=== PATIENT | female | born 1965 | race Caucasian/White ===

== ENCOUNTER 2017-04-15 20:24 | Emergency (ER) | payer BC ==
[2017-04-15] MEDS ORDERED: Albuterol/Ipratropium NEB.SOL* Albuterol 2.5 MG/Ipratropium 0.5 MG 3 ML INH ONE (21:01)
[2017-04-15] MEDS ORDERED: Ibuprofen TAB* 800 MG PO ONE (21:01)
--- NOTE | 2017-04-15 21:16 | ED ---
HPI Chest Pain - HPI Summary HPI Summary: Pt here w/ fall on Wednesday night - was intoxicated and fell, hitting Lt side of ribs/chest. No pain then and went to bed but was sore Wednesday and today. Actually felt like she was improving with ice and rest until she coughed after using her albuterol, and felt/heard a pop on Lt side w/ abrupt pain - made her sweat and she almost vomited from pain so decided to come here for assessment. She denies hitting her head when she fell and no head or neck pain, visual change, nausea, vomiting, numbness, tingling, weakness. Was using inhaler as asthma has been acting up lately. Denies fever, chills. Cough is scantily productive. No SOB but Lt side/anterior rib pain is worse w/ deep breath. - History of Current Complaint Chief Complaint: EDChestWallPain Time Seen by Provider: 04/15/17 20:50 Hx Obtained From: Patient, Family/Supervisor [employer] - male partner Pain Intensity: 3 - Allergy/Home Medications Allergies/Adverse Reactions: Allergies Allergy/AdvReac Type Severity Reaction Status Date / Time Morphine Allergy Intermediate Itching Verified 03/06/17 10:11 PMH/Surg Hx/FS Hx/Imm Hx Previously Healthy: Yes Endocrine/Hematology History: Reports: Hx Thyroid Disease - take levothyroxine Denies: Hx Anticoagulant Therapy, Hx Blood Disorders Cardiovascular History: Denies: Other Cardiovascular Problems/Disorders Respiratory History: Reports: Hx Asthma - albuterol inhaler PRN - Cancer History Hx Chemotherapy: No Hx Radiation Therapy: No - Immunization History Date of Influenza Vaccine: 2013 Immunizations Up to Date: Yes Infectious Disease History: No Infectious Disease History: Denies: Traveled Outside the [place] in Last 30 Days - Social History Lives: With Family Alcohol Use: Weekly Hx Substance Use: No Substance Use Type: Reports: None Hx Tobacco Use: Yes Smoking Status (MU): Current Every Day Smoker Review of Systems Constitutional: Negative Negative: Fever, Chills, Fatigue Eyes: Negative ENT: Negative Positive: Chest Pain - ribs as in HPI Positive: Cough. Negative: Shortness Of Breath Gastrointestinal: Negative Positive: no symptoms reported Musculoskeletal: Other - ribs as in HPI Positive: Bruising - pt and partner thought they noticed bruising along affected areas of torso/ribs Neurological: Negative Psychological: Normal All Other Systems Reviewed And Are Negative: Yes Physical Exam Triage Information Reviewed: Yes Vital Signs On Initial Exam: Initial Vitals Temp Pulse Resp BP Pulse Ox 97.3 F 83 18 129/72 96 04/15/17 20:26 04/15/17 20:26 04/15/17 20:26 04/15/17 20:26 04/15/17 20:26 Vital Signs Reviewed: Yes Appearance: Positive: Well-Appearing, No Pain Distress - at rest but holds her Lt side w/ coughing, Well-Nourished Skin: Positive: Warm, Dry - no erythema, no ecchymosis, no skin breakdown over affected areas Head/Face: Positive: Normal Head/Face Inspection Eyes: Positive: Normal, EOMI, GRACIELA - no photophobia, Conjunctiva Clear. Negative: Conjunctiva Inflammed, Discharge ENT: Positive: Normal ENT inspection, Hearing grossly normal, Pharynx normal - mucosa moist. Negative: Nasal congestion, Nasal drainage Neck: Positive: Supple, Nontender Respiratory/Lung Sounds: Positive: Breath Sounds Present, Rhonchi, Wheezes - diffuse, Other - Lt anterior and side ribs are TTP - no sara crepitus palpated ; no flail chest observed. Negative: Decreased Breath Sounds, Rales, Subcutaneous Emphysema, Stridor, Tracheal Deviation Cardiovascular: Positive: Normal, RRR, S1, S2 Abdomen Description: Positive: Nontender, Soft Bowel Sounds: Positive: Present Musculoskeletal: Positive: Normal, Strength/ROM Intact Neurological: Positive: Normal, Sensory/Motor Intact, Alert, Oriented to Person Place, Time, CN Intact II-III Psychiatric: Positive: Normal - Peter Coma Scale Coma Scale Total: 15 Diagnostics - Vital Signs Vital Signs Temp Pulse Resp BP Pulse Ox 04/15/17 20:26 97.3 F 83 18 129/72 96 - Laboratory Lab Statement: Any lab studies that have been ordered have been reviewed, and results considered in the medical decision making process. Re-Evaluation - Re-Evaluation First Eval Change: Improved - CTA s/p duoneb - pt reports breathing easier but still has rib pain w/ cough despite ibuprofen - she has SOB w/ hives when she's had morphine in the past and has not tried a controlled substance since Chest Pain Course/Dx - Course Course Of Treatment: CXR report - no rib fx, no pneumothorax, no acute cardiopulm findings. Pt appears to have a rib contusion. Supportive care provided and pneumonia prevention with incentive spirometer. Advised on pain control techniques and to monitor for danger s/sx of when to return to ED - otherwise, will f/u w/ PCP. Pt and partner agree w/ plan. NOTE: narcotic pain med not rx'd as pt's allergy to morphine is anaphylaxis. She has not tried a narcotic pain med since and understands my hesitation for writing this tonight. If pain worsens, will f/u w/ PCP to discuss safest choice as they are more familiar w/ her med hx. - Diagnoses Provider Diagnoses: Contusion of rib on left side, Asthma exacerbation Discharge - Discharge Plan Condition: Stable Disposition: HOME Prescriptions: Lidocaine PATCH 5%* [Lidoderm 5% Patch*] 1 patch TRANSDERM DAILY PRN #30 patch PRN Reason: Pain Patient Education Materials: Asthma (ED), Rib Contusion (ED) Referrals: Lobito Paul [Primary Care Provider] - Additional Instructions: You appear to have a rib contusion without fracture. Continue to apply ice, take ibuprofen with food and use topical pain patch. Lidoderm pain patch has been sent to your pharmacy. If you cannot afford this, you may request that your PCP get prior authorization and/or use Salonpas pain patches (over the counter). Continue to cough and take deep breathes to prevent pneumonia. If you develop fever, chills, shortness of breath, difficulty breathing, return to ED
--- NOTE | 2017-04-15 21:35 | RAD ---
INDICATION: Left rib injury COMPARISON: None TECHNIQUE: Multiple views of the ribs were obtained. FINDINGS: Bones: There is no evidence of acute rib fracture. LUNGS: The lungs are clear. There is no pneumothorax. Pleural spaces: There is no evidence of hemothorax. Other: None IMPRESSION: NO ACUTE RIB FRACTURE.
--- NOTE | 2017-04-15 21:35 | RAD ---
INDICATION: Fall. Left rib pain. COMPARISON: March 08, 2013 TECHNIQUE: PA and lateral dual-energy views were obtained. FINDINGS: Bones/Soft Tissues: There are no acute bony findings. Cardiomediastinal: The cardiomediastinal silhouette is normal. Lungs: There are no infiltrates. Pleura: There are no pleural effusions. Other: None IMPRESSION: NO ACTIVE DISEASE.
[2017-04-15 22:20] VITALS: BP 121/62
[2017-04-15] MEDS ORDERED: Lidocaine PATCH 5%* 1 PATCH TRANSDERM SCH (23:00)
== END 2017-04-15 23:03 | disposition home or self-care (01) ==
LOC: ED 20:24
DX: J21.9 Acute bronchiolitis, unspecified (principal)
CPT/HCPCS: 71020; 94640; A9270-GY

== ENCOUNTER 2018-05-06 10:23 | Emergency (ER) | payer BC, MEDICAID ==
[2018-05-06] MEDS ORDERED: Fluorescein Sodium TOPICAL* 1 MG TEST STRIP ONE (11:16)
[2018-05-06] MEDS ORDERED: Tetracaine 0.5% OPTH.SOL 4 ML* 1 DROP BTL ONE (11:16)
--- NOTE | 2018-05-06 11:30 | ED ---
Complex/Multi-Sys Presentation - HPI Summary HPI Summary: Patient is a 52 y/o F presenting to ED with complaints of left eye pain onsetting yesterday afternoon. She states that she was cleaning her household when Sx onset. Patient reports some discharge from eye, pruritis, eryhtema of eye. Photophobia is endorsed as well. She notes that a few weeks ago she had a piece of string in her eye which was removed. Patient claims that present pain feels similar. No Hx of autoimmune disorders, no Hx of Crohn's, rheumatoid arthritis. No cough, no cold Sx reported. On triage, pain is rated 5/10, nothing is noted to aggravate/alleviate Sx. Home medications, allergies, and nurse's note are reviewed. - History Of Current Complaint Chief Complaint: EDEyeProblem Time Seen by Provider: 05/06/18 11:14 Hx Obtained From: Patient Onset/Duration: Lasting Days - onset yesterday afternoon., Still Present Timing: Constant Severity Currently: Moderate - 5/10 Location: Pain At: - left eye Aggravating Factor(s): nothing Alleviating Factor(s): nothing Associated Signs And Symptoms: Positive: Other - POSITIVE - LEFT EYE PAIN; NEGATIVE - COLD SX. Negative: Cough - Allergies/Home Medications Allergies/Adverse Reactions: Allergies Allergy/AdvReac Type Severity Reaction Status Date / Time MS Morphine [Morphine] Allergy Intermediate Itching Verified 03/06/17 10:11 PMH/Surg Hx/FS Hx/Imm Hx Endocrine/Hematology History: Reports: Hx Thyroid Disease - take levothyroxine Denies: Hx Anticoagulant Therapy, Hx Blood Disorders Cardiovascular History: Denies: Other Cardiovascular Problems/Disorders Respiratory History: Reports: Hx Asthma - albuterol inhaler PRN - Cancer History Hx Chemotherapy: No Hx Radiation Therapy: No - Immunization History Date of Influenza Vaccine: 2013 Infectious Disease History: No Infectious Disease History: Denies: Traveled Outside the [place] in Last 30 Days - Family History Known Family History: Negative: Blood Disorder - Social History Alcohol Use: Weekly Hx Substance Use: No Substance Use Type: Reports: None Hx Tobacco Use: Yes Smoking Status (MU): Current Every Day Smoker Review of Systems Positive: Other - POSITIVE - COLD SX Positive: Photophobia, Other - POSITIVE - LEFT EYE PAIN, ERYTHEMA, PRURITIS, DISCHARGE Negative: Cough All Other Systems Reviewed And Are Negative: Yes Physical Exam - Summary Physical Exam Summary: Appearance: Well appearing, no pain distress Skin: warm, dry, reflects adequate perfusion Head/face: normal Eyes: EOMI, GRACIELA; erythema of left eye with conjunctival inflammation and injection, pupil is mid range and reactive, no pain with light reflex, no fluorescein uptake, no foreign body in eye observed ENT: mucous membranes moist Neck: supple, non-tender Respiratory: CTA, breath sounds present Cardiovascular: RRR, pulses symmetrical Abdomen: non-tender, soft Bowel Sounds: present Musculoskeletal: normal, strength/ROM intact Neuro: normal, sensory motor intact, A&Ox3 Triage Information Reviewed: Yes Vital Signs On Initial Exam: Initial Vitals Temp Pulse Resp BP Pulse Ox 97.8 F 58 16 142/80 98 05/06/18 10:35 05/06/18 10:35 05/06/18 10:35 05/06/18 10:35 05/06/18 10:35 Vital Signs Reviewed: Yes Diagnostics - Vital Signs Vital Signs Temp Pulse Resp BP Pulse Ox 05/06/18 10:35 97.8 F 58 16 142/80 98 - Laboratory Lab Statement: Any lab studies that have been ordered have been reviewed, and results considered in the medical decision making process. Re-Evaluation - Re-Evaluation First Eval Re-Evaluation Time: 11:30 Change: Improved Comment: Patient states that pain is completely resolved after topical anesthesia Complex Multi-Symp Course/Dx Course Of Treatment: Nurse's notes reviewed. Vision is normal area no pain with light reflex. Pain gone after topical tetracaine. No fluorescein uptake. No foreign body seen with lid eversion. Treat with topical antibiotics and follow up with ear specialist. - Diagnoses Differential Diagnoses/HQI/PQRI: Other - Foreign body, corneal abrasion, iritis/ uveitis, conjunctivitis Provider Diagnoses: Conjunctivitis Discharge - Sign-Out/Discharge Documenting (check all that apply): Patient Departure - dischaged - Discharge Plan Condition: Improved Disposition: HOME Prescriptions: Polymyx/Trimethoprim OPTH* [Polytrim OPHTH*] 1 drop LEFT EYE Q3H #1 btl Patient Education Materials: Conjunctivitis (ED) Referrals: Lobito Paul [Primary Care Provider] - Additional Instructions: Return to ED for eye pain, blurred vision, worse, new or worsening symptoms. Call today to schedule follow-up appointment with your eye doctor. - Billing Disposition and Condition Condition: IMPROVED Disposition: Home - Attestation Statements Document Initiated by Tejibsharmila: Yes Documenting Scribe: HENRY FLOR Provider For Whom Sachi is Documenting (Include Credential): MARYAM DUNCAN MD Scribe Attestation: IHENRY , scribed for MARYAM DUNCAN MD on 05/06/18 at 1423. Scribe Documentation Reviewed: Yes Provider Attestation: The documentation as recorded by the HENRY gallardo accurately reflects the service I personally performed and the decisions made by me, MARYAM DUNCAN MD Status of Scribe Document: Viewed
[2018-05-06 11:50] VITALS: BP 132/78
== END 2018-05-06 11:49 | disposition home or self-care (01) ==
LOC: ED 10:23
DX: H10.9 Unspecified conjunctivitis (principal); J45.909 Unspecified asthma, uncomplicated; F17.200 Nicotine dependence, unspecified, uncomplicated; E07.9 Disorder of thyroid, unspecified
CPT/HCPCS: 99281; A9270-GY

== ENCOUNTER 2019-03-23 12:11 | Emergency (ER) | payer BC ==
[2019-03-23] MEDS ORDERED: NS 0.9% 1000 ML** 1,000 ML IV ONE ×2 (12:36→14:07)
[2019-03-23] MEDS ORDERED: Ondansetron INJ* 2 MG/ML VIAL IV ONE (12:36)
--- NOTE | 2019-03-23 12:40 | ED ---
Complex/Multi-Sys Presentation - HPI Summary HPI Summary: The pt is a 53 yr old female presenting [facility] c/o vomiting, diarrhea, and abd pain beginning yesterday. She states that yesterday she was feeling better than this morning and that her diarrhea is like water. She has not travelled recently and is not on antibiotics. She ate at home yesterday and did not eat any unusual foods. She rates her current pain severity a 0/10. No aggravating or alleviating factors noted. She also reports jaw pain and headache. She is an occasional smoker and has Hx of Asthma and hypothyroidism. - History Of Current Complaint Chief Complaint: EDNauseaVomitDiarrh Time Seen by Provider: 03/23/19 12:19 Hx Obtained From: Patient Onset/Duration: Sudden Onset, Lasting Days - 2, Still Present Timing: Constant, Days - 2 Severity Currently: None Severity Initially: Mild Aggravating Factor(s): nothing Alleviating Factor(s): nothing Associated Signs And Symptoms: Positive: Headache, Nausea, Vomiting, Diarrhea, Abdominal Pain, Other - pos - jaw pain - Allergies/Home Medications Allergies/Adverse Reactions: Allergies Allergy/AdvReac Type Severity Reaction Status Date / Time morphine Allergy Itching Verified 03/23/19 12:14 PMH/Surg Hx/FS Hx/Imm Hx Endocrine/Hematology History: Reports: Hx Thyroid Disease - take levothyroxine Denies: Hx Anticoagulant Therapy, Hx Blood Disorders Cardiovascular History: Denies: Other Cardiovascular Problems/Disorders Respiratory History: Reports: Hx Asthma - albuterol inhaler PRN - Cancer History Hx Chemotherapy: No Hx Radiation Therapy: No - Surgical History Surgical History: None Surgery Procedure, Year, and Place: none - Immunization History Date of Influenza Vaccine: 2013 Infectious Disease History: No Infectious Disease History: Denies: Traveled Outside the [place] in Last 30 Days - Family History Known Family History: Negative: Blood Disorder - Social History Alcohol Use: Weekly Hx Substance Use: No Substance Use Type: Reports: None Hx Tobacco Use: Yes Smoking Status (MU): Current Every Day Smoker Review of Systems ENT: Other - pos - jaw pain Positive: Abdominal Pain, Vomiting, Diarrhea, Nausea Positive: Headache All Other Systems Reviewed And Are Negative: Yes Physical Exam - Summary Physical Exam Summary: VITAL SIGNS: Reviewed. GENERAL: Patient is a well-developed and nourished female who is lying comfortable in the stretcher. Patient is not in any acute respiratory distress. HEAD AND FACE: No signs of trauma. No ecchymosis, hematomas or skull depressions. No sinus tenderness. EYES: PERRLA, EOMI x 2, No injected conjunctiva, no nystagmus. EARS: Hearing grossly intact. Ear canals and tympanic membranes are within normal limits. MOUTH: Dry oral mucousa. NECK: Supple, trachea is midline, no adenopathy, no JVD, no carotid bruit, no c- spine tenderness, neck with full ROM. CHEST: Symmetric, no tenderness at palpation. LUNGS: Clear to auscultation bilaterally. No wheezing or crackles. CVS: Regular rate and rhythm, S1 and S2 present, no murmurs or gallops appreciated. ABDOMEN: Soft, non-tender. No signs of distention. No rebound, no guarding, and no masses palpated. Increased bowel sounds. EXTREMITIES: FROM in all major joints, no edema, no cyanosis or clubbing. NEURO: Alert and oriented x 3. No acute neurological deficits. Speech is normal and follows commands. SKIN: Dry and warm. Triage Information Reviewed: Yes Vital Signs On Initial Exam: Initial Vitals Temp Pulse Resp BP Pulse Ox 97.6 F 121 14 136/91 95 03/23/19 12:11 03/23/19 12:11 03/23/19 12:11 03/23/19 12:11 03/23/19 12:11 Vital Signs Reviewed: Yes Procedures - Sedation Patient Received Moderate/Deep Sedation with Procedure: No Diagnostics - Vital Signs Vital Signs Temp Pulse Resp BP Pulse Ox 03/23/19 12:11 97.6 F 121 14 136/91 95 - Laboratory Result Diagrams: 03/23/19 12:46 03/23/19 12:46 Lab Statement: Any lab studies that have been ordered have been reviewed, and results considered in the medical decision making process. Complex Multi-Symp Course/Dx Assessment/Plan: The pt is a 53 yr old female presenting to [facility] c/o vomiting, diarrhea, and abd pain beginning yesterday. She states that yesterday she was feeling better than this morning and that her diarrhea is like water. She has not travelled recently and is not on antibiotics. She ate at home yesterday and did not eat any unusual foods. She rates her current pain severity a 0/10. No aggravating or alleviating factors noted. She also reports jaw pain and headache. She is an occasional smoker and has Hx of Asthma and hypothyroidism. Blood test results without any significant abnormality except for WBCs 11.9, glucose 148, but is 1.7, lipase 85. Urinalysis contaminated. ED course the patient was given IV fluids, medication for the hypomagnesemia. Patient was given Zofran for nausea and vomiting. The patient was given with these medications the patients symptoms have improved. The patient was tolerating fluids without any nausea and vomiting. Patient had only 1 episode of diarrhea has resolved. She has no abdominal cramping. I discussed all the findings and test results with the patient. Patient was instructed to return to the emergency room immediately if any of the symptoms return worsens. Plan of care was discussed with the patient and understands and agrees. All questions were answered at patient satisfaction. There were no further complaints or concerns. Lung exam before discharge: CTA B/L. Good air exchange. No wheezing or crackles heard. CVS: S1 and S2 present. No murmurs appreciated. Patient is alert and oriented x 3. Patient is hemodynamically stable. Patient will be discharged home with follow up PCP in the next 2-3 days - Diagnoses Provider Diagnoses: Nausea vomiting and diarrhea Discharge ED - Sign-Out/Discharge Documenting (check all that apply): Patient Departure - discharge - Discharge Plan Condition: Stable Disposition: HOME Prescriptions: Ondansetron TAB* [Zofran 4 MG Tab*] 4 mg PO Q6H PRN #10 tab PRN Reason: Vomiting Patient Education Materials: Acute Nausea and Vomiting (ED), Acute Diarrhea (ED ) Referrals: No Primary Care Phys,NOPCP [Primary Care Provider] - Additional Instructions: Please follow up with your primary care provider within 3 days. Please return to the ED for any new or worsening symptoms. - Billing Disposition and Condition Condition: STABLE Disposition: Home - Attestation Statements Document Initiated by Scribe: Yes Documenting Scribe: Lalo Capps Provider For Whom Sachi is Documenting (Include Credential): Chad Henson MD Scribe Attestation: aLlo Barroso, scribed for Chad Henson MD on 03/26/19 at 0713. Scribe Documentation Reviewed: Yes Provider Attestation: The documentation as recorded by the Lalo gallardo accurately reflects the service I personally performed and the decisions made by me, Chad Henson MD Status of Scribe Document: Viewed
[2019-03-23 12:51] LABS: ABS Eosinophils 0.1 10^3/ul (0-0.6); ABS Lymphocytes 0.6 10^3/ul (1.0-4.8); ABS Monocytes 0.6 10^3/ul (0-0.8); ABS Neutrophils 10.5 10^3/ul (1.5-7.7); Eosinophil % 0.9 %; Hematocrit 47 % (35-47); Hemoglobin 15.7 g/dL (12.0-16.0); Lymphocyte % 5.3 %; Mean Corpuscular HGB Conc 34 g/dL (31-36); Mean Corpuscular Hemoglobin 30 pg (27-31); Mean Corpuscular Volume 88 fL (80-97); Platelet Count 179 10^3/uL (150-450); Red Blood Count 5.28 10^6 /uL (3.70-4.87); Red Cell Distribution Width 14 % (10-15); White Blood Count 11.9 10^3/uL (3.5-10.8)
[2019-03-23 12:53] LABS: Urine Appearance Turbid; Urine Bilirubin Negative (Negative); Urine Blood Negative (Negative); Urine Color Amber; Urine Glucose Negative (Negative); Urine Ketones Trace (Negative); Urine Nitrite Negative (Negative); Urine Protein 1+(30 mg/dL) (Negative); Urine Specific Gravity 1.028 (1.010-1.030); Urine Urobilinogen Negative (Negative)
[2019-03-23 12:55] LABS: Urine Bacteria Absent (Absent); Urine Red Blood Cell 1+(3-5/hpf) (Absent); Urine Squamous Epithelial Cell Present (Absent); Urine White Blood Cell Trace(0-5/hpf) (Absent)
[2019-03-23 13:08] LABS: Albumin 4.3 g/dL (3.2-5.2); Albumin/Globulin Ratio 1.5 (1-3); BUN/Creatinine Ratio 21.3 (8-20); C Reactive Protein 3.56 mg/L (<8.01); Calcium 9.4 mg/dL (8.6-10.3); EGFR African American 91.1 (>60); EGFR Non-African American 75.3 (>60); Globulin 2.9 g/dL (2-4); Magnesium 1.7 mg/dL (1.9-2.7); Total Bilirubin 0.7 mg/dL (0.2-1.0); Total Protein 7.2 g/dL (6.4-8.9)
[2019-03-23] MEDS ORDERED: Magnesium Oxide TAB* 400 MG PO ONE (13:26)
[2019-03-23] MEDS ORDERED: Diphenoxylat/Atrop 2.5-0.025M* 1 TAB PO PRN (15:11)
[2019-03-23 15:41] VITALS: BP 148/93
--- OUTSIDE RECORDS SUMMARY | 2019-03-28 14:28 | XMS REPORT ---
:1965 Author Organization [facility] Address [address] [place] [address] Care Team Providers Name Role Phone Dung Walker Unavailable Unavailable PROBLEMS Type Condition ICD9-CM Code [id number] Code Onset Condition SNOMED Code Dates Status Problem Mild intermittent J45.20 Active 044912656 asthma without complication Problem Menopausal N95.1 Active 22630067 symptoms Problem Hyperplastic K63.5 Active 999371406 colonic polyp, unspecified part of colon Problem Hypothyroidism, E03.9 Active 40192497 unspecified type ALLERGIES No Information ENCOUNTERS Encounter Location Date Diagnosis [facility] [address] Mar, [place] [address] Counts [facility] [address] Mar, [place] [address] [place] [address] [facility] Feb, [place] [address] [facility] [address] Feb, Menopausal symptoms N95.1 [place] [address] ; Screening for breast cancer Z12.31 and Influenza vaccine refused Z28.21 [facility] [address] Feb, [place] [address] [facility] [address] Apr, [place] [address] Counts Include [facility] [address] Mar, [place] [address] [facility] [address] Mar, [place] [address] [facility] [address] Mar, [place] [address] cancer Z12.4 ; Hot flashes R23.2 ; Mild intermittent asthma without complication J45.20 ; Screening for colon cancer Z12.11 ; Screening for breast cancer Z12.31 and Hypothyroidism, unspecified type E03.9 [place] [facility] [address] Jan, [place] [address] [facility] [address] Dec, [place] [address] Counts Include [facility] [address] Mar, [place] [address] Counts [facility] [address] Mar, [place] [address] Counts [facility] [address] Mar, [place] [address] Counts [facility] [address] Feb, [place] [address] [facility] [address] Feb, [place] [address] [facility] [address] Nov, [place] [address] [facility] [address] Nov, [place] [address] Counts Include [facility] [address] August, [place] [address] Counts Include [facility] [address] August, [place] [address] IMMUNIZATIONS No Known Immunizations SOCIAL HISTORY Never Assessed REASON FOR REFERRAL FUNCTIONAL STATUS PLAN OF CARE Activity Details Follow Up 3-6 weeks, also as scheduled Reason:Menopause f/u / other concerns Pending Test MAMMO SCREENING BILATERAL VITAL SIGNS Temperature 98.2 degrees Fahrenheit 2019-03-21 Heart Rate 20 2019-03-21 Weight 134.3 2019-03-21 Height 62.9 in 2019-03-21 BMI 23.86 kg/m2 2019-03-21 Oximetry 98 % 2019-03-21 Blood pressure systolic 105 mm Hg 2019-03-21 Blood pressure diastolic 72 mm Hg 2019-03-21 MEDICATIONS Medication Instructions Dosage Frequency Start End Duration Status Date Date Venlafaxine HCl Orally Once a 1 tablet 24h Feb, day(s) Active 75 mg day with food 2018 Nasal [place] 0.05 Nasally Twice a 2 sprays 12h Active % day in each nostril as needed Levothyroxine Orally Once a 1 tablet 24h Active Sodium 75 MCG day on an empty stomach in the morning Ventolin HFA 108 Inhalation every 2 puffs as 6h Active (90 Base) MCG/ACT 6 hrs needed PROCEDURES Procedure Date Ordered Result Body Site BODY MASS INDEX DOCD Mar 21, 2019 SMOKING + 2ND HAND ASSESSED Mar 21, 2019 Oxygen saturation results documented and reviewed Mar 21, 2019 BLOOD PRESSURE, MEASURED Mar 21, 2019 RESULTS No Results REASON FOR VISIT menopause , PVP:MAMMO,PHQ-2,TOBACCO SCR,BMI &FU,FLU,TETANUS,ZOSTER. , Offer imms per above. MPT,declined the flu shot.CM , please order a MAMMO.CM , will request patient tetanus shot. Insurance Providers [facility] Health Member Patient Patient Patient Patient Patient Subscriber Subscriber Subscriber Group Insurance Plan Plan Plan Plan ID Relationship Address Phone Name Date of ID Name Date of No Type Insurance Insurance Insurance Coverage to Subscriber Address Phone Name Dates Medicaid [address] [phone] Medicaid self Shakira [id number] Wrap [facility] 56 Wrap [facility] [address] Case [phone] Case self Shakira [id number] Management [place] 02 [facility] [address] [facility] Blue [phone] Blue self Shakira [id number] Choice Opt [id number] 89 Choice Opt [place] 1 Medical [place] Medical [address] Excellus [phone] Excellus self Shakira [id number] Essential [id number] 89 Essential [place] 9 Plan 1 2 [place] Plan 1 2 Medical [address] Medical Blue [phone] Blue self Shakira [id number] Choice Opt 9255 Attn 83 Choice Opt [place] -WEA GG457 [place] Claims [id number] [place] [facility]plex [facility]plex [facility] [address] MEDICAL (GENERAL) HISTORY Type Description Date Medical History hypothyroidism Medical History Asthma Surgical History Hernia Right side x2 2004 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
--- OUTSIDE RECORDS SUMMARY | 2019-03-28 14:28 | XMS REPORT ---
:1965 Author Organization [facility] Address [address] [place] [address] Care Team Providers Name Role Phone Dung Walker Unavailable Unavailable PROBLEMS Type Condition ICD9-CM Code SHY87-PE Code Onset Condition SNOMED Code Dates Status Problem Mild intermittent J45.20 Active 496709666 asthma without complication Problem Menopausal N95.1 Active 92206629 symptoms Problem Hyperplastic K63.5 Active 023479976 colonic polyp, unspecified part of colon Problem Hypothyroidism, E03.9 Active 79134135 unspecified type ALLERGIES No Information ENCOUNTERS Encounter Location Date Diagnosis [facility] [address] Mar, [place] [address] [facility] [address] Mar, Menopausal symptoms N95.1 [place] [address] [place] [address] [place] Feb, [place] [address] [place] [address] [place] Feb, [place] [address] [facility] [address] Feb, Menopausal symptoms N95.1 [place] [address] ; Screening for breast cancer Z12.31 and Influenza vaccine refused Z28.21 [facility] [address] Feb, [place] [address] [facility] [address] Apr, [place] [address] [facility] [address] Mar, [place] [address] [facility] [address] Mar, [place] [address] [facility] [address] Mar, [place] [address] cancer Z12.4 ; Hot flashes R23.2 ; Mild intermittent asthma without complication J45.20 ; Screening for colon cancer Z12.11 ; Screening for breast cancer Z12.31 and Hypothyroidism, unspecified type E03.9 [place] [facility] [address] 31 Jan, 2017 [place] [address] [facility] [address] 25 Dec, 2016 [place] [address] [facility] [address] 16 Mar, 2016 [place] [address] [facility] [address] Mar, [place] [address] [facility] [address] Mar, [place] [address] [facility] [address] Feb, [place] [address] [facility] [address] Feb, [place] [address] [facility] [address] Nov, [place] [address] [facility] [address] Nov, [place] [address] [facility] [address] August, [place] [address] [facility] [address] August, [place] [address] IMMUNIZATIONS No Known Immunizations SOCIAL HISTORY Never Assessed REASON FOR REFERRAL FUNCTIONAL STATUS PLAN OF CARE VITAL SIGNS MEDICATIONS Unknown Medications PROCEDURES No Known procedures RESULTS No Results REASON FOR VISIT Acute Triage Insurance Providers [facility] Member Patient Patient Patient Patient Patient Subscriber Subscriber Subscriber Group Insurance Plan Plan Plan Plan ID Relationship Address Phone Name Date of ID Name Date of No Type Insurance Insurance Insurance Coverage to Subscriber Address Phone Name Dates Medicaid [address] [phone] Medicaid self Shakira [id number] Wrap [facility] 56 Wrap [facility] [address] Case [phone] Case self Shakira [id number] Management [place] 02 [facility] [address] [facility] Blue [phone] Blue self Shakira [id number] Choice Opt [id number] 89 Choice Opt [place] 1 Medical Homero [place] Medical [address] Excellus [phone] Excellus self Shakira [id number] Essential [id number] 89 Essential [place] 9 Plan 1 2 [place] Plan 1 2 Medical [address] Medical Blue [phone] Blue self Shakira [id number] Choice Opt 9255 Attn 83 Choice Opt [place] GG457 [place] Claims GG457 [place] [facility] Hplex Quentin [facility] [address] MEDICAL (GENERAL) HISTORY Type Description Date Medical History hypothyroidism Medical History Asthma Surgical History Hernia Right side x2 2004 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
--- OUTSIDE RECORDS SUMMARY | 2019-03-28 14:28 | XMS REPORT ---
:1965 Author Organization [facility] Address [address] [place] [address] Care Team Providers Name Role Phone Dung Walker Unavailable Unavailable PROBLEMS Type Condition ICD9-CM Code JSQ66-HC Code Onset Condition SNOMED Code Dates Status Problem Mild intermittent J45.20 Active 287740521 asthma without complication Problem Menopausal N95.1 Active 01332447 symptoms Problem Hyperplastic K63.5 Active 513480384 colonic polyp, unspecified part of colon Problem Hypothyroidism, E03.9 Active 06102237 unspecified type ALLERGIES No Information ENCOUNTERS Encounter Location Date Diagnosis [facility] [address] Mar, [place] [address] [facility] [address] Mar, Menopausal symptoms N95.1 [place] [address] [place] [address] [place] Feb, [place] [address] [place] [address] [place] Feb, [place] [address] [facility] [address] Feb, Menopausal symptoms N95.1 [place] [address] ; Screening for breast cancer Z12.31 and Influenza vaccine refused Z28.21 [facility] [address] Feb, [place] [address] [facility] [address] Apr, [place] [address] [facility] [address] Mar, [place] [address] [facility] [address] Mar, [place] [address] [facility] [address] Mar, [place] [address] cancer Z12.4 ; Hot flashes R23.2 ; Mild intermittent asthma without complication J45.20 ; Screening for colon cancer Z12.11 ; Screening for breast cancer Z12.31 and Hypothyroidism, unspecified type E03.9 [place] [facility] [address] 31 Jan, 2017 [place] [address] [facility] [address] 25 Dec, 2016 [place] [address] [facility] [address] 16 Mar, 2016 [place] [address] [facility] [address] 14 Mar, 2016 [place] [address] [facility] [address] Mar, [place] [address] [facility] [address] Feb, [place] [address] [facility] [address] Feb, [place] [address] [facility] [address] Nov, [place] [address] [facility] [address] Nov, [place] [address] [facility] [address] August, [place] [address] [facility] [address] August, [place] [address] IMMUNIZATIONS No Known Immunizations SOCIAL HISTORY Never Assessed REASON FOR REFERRAL FUNCTIONAL STATUS PLAN OF CARE VITAL SIGNS MEDICATIONS Medication Instructions Dosage Frequency Start End Duration Status Date Date Venlafaxine HCl Orally Once a 1 tablet 24h Feb, day(s) Unknown 75 mg day with food 2018 Levothyroxine Orally Once a 1 tablet 24h Unknown Sodium 75 MCG day on an empty stomach in the morning Ventolin HFA 108 Inhalation 2 puffs as 6h Unknown (90 Base) MCG/ACT every 6 hrs needed Mometasone Nasally Once a 2 sprays 24h Active Furoate 50 day in each MCG/ACT nostril PROCEDURES No Known procedures RESULTS No Results REASON FOR VISIT call back Insurance Providers [facility] Member Patient Patient Patient Patient Patient Subscriber Subscriber Subscriber Group Insurance Plan Plan Plan Plan ID Relationship Address Phone Name Date of ID Name Date of No Type Insurance Insurance Insurance Coverage to Subscriber Address Phone Name Dates Excellus [phone] Excellus self Shakira [id number] Essential [id number] Essential [place] 9 Plan 1 2 [place] Plan 1 2 Medical [id number] Medical Blue [phone] Blue self Shakira [id number] Choice [place] [id number] 89 Choice [place] 1 [place] [address] Blue [phone] Blue self Shakira [id number] Choice Opt 9255 Attn 83 Choice Opt [place] -WEA GG457 [place] Claims GG457 [place] Hplex Quentin Dept Hplex Quentin [facility] [address] [address] [phone] Medicaid self Shakira [id number] Wrap [facility] 56 Wrap [facility] [address] Case [phone] Case self Shakira [id number] Management [place] 02 Management [facility] [address] [facility] MEDICAL (GENERAL) HISTORY Type Description Date Medical History hypothyroidism Medical History Asthma Surgical History Hernia Right side x2 2004 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
--- OUTSIDE RECORDS SUMMARY | 2019-03-28 14:28 | XMS REPORT | Referral Summary ---
:1965 Author Organization [facility] Address [address] [place] [address] Care Team Providers Name Role Phone Eduardo Rothman Primary Care Physician Encounter Date(s): 02/16/19 - 02/16/19 [facility] [address] [place] [address] [place] Encounter Diagnosis Malignant neoplasm of unspecified site of unspecified female breast (Final) - Discharge Disposition: Home or Self Care Attending Physician: Gracia Don Admitting Physician: Gracia Don Referring Physician: FLAKO JESUS, DoctorQ Functional Status No data available for this section Vital Signs No data available for this section Problem List Condition Effective Dates Status Health Status Informant Acneiform rash(Confirmed) 08/30/15 Active Malignant neoplasm of central part 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 Currently undergoing XRT. TTE 10/2015 - Ef 58% TTE 07/2015 - EF 64% Allergies, Adverse Reactions, Alerts No Known Allergies Medications Advil mg, Oral, See comments, 0 Refill(s), prn Start Date: 12/25/15 Status: Orderedtamoxifen 20 mg oral tablet See Instructions, # 30 tab, 3 Refill(s), TAKE 1 TABLET BY MOUTH EVERY DAY, Pharmacy: [facility] #[id number], TAKE 1 TABLET BY MOUTH EVERY DAY Start Date: 01/19/19 Status: OrderedXanax 0.5 mg oral tablet 0.5 mg, = 1 tab, Oral, BID, X 30 day(s), # 60 tab, 0 Refill(s), as needed for anxiety, prn, Pharmacy: [facility] #[id number], 1 tab Oral BID,x30 day(s), PRN:as needed for anxiety,Instr:prn Start Date: 01/24/19 Stop Date: 02/23/19 Status: Ordered Results No data available for this section Immunizations No data available for this section Procedures Procedure Date Related Diagnosis Body Site Status left, breast cancer Completed port placement1 Completed 33146 Social History Social History Type Response Smoking Status Never smoker; Concerns about tobacco use in household: No entered on: 11/22/18 Assessment and Plan No data available for this section Hospital Discharge Instructions No data available for this section
== END 2019-03-23 15:45 | disposition home or self-care (01) ==
LOC: ED 12:11
DX: R11.2 Nausea with vomiting, unspecified (principal); R19.7 Diarrhea, unspecified; E03.9 Hypothyroidism, unspecified; J45.909 Unspecified asthma, uncomplicated; F17.200 Nicotine dependence, unspecified, uncomplicated; Z79.890 Hormone replacement therapy; Z88.5 Allergy status to narcotic agent
CPT/HCPCS: 36415; 80053; 81003; 81015; 83605; 83630; 83690; 83735; 85025; 86140; 87045; 87046; 87086; 87493; 87899; 96361; 96374; 99282; J2405

== ENCOUNTER 2019-04-07 16:36 | Emergency (ER) | payer BC ==
--- OUTSIDE RECORDS SUMMARY | 2019-04-07 16:57 | XMS REPORT | Referral Summary ---
:1965 Author Organization [facility] Address [address] [place] [address] Care Team Providers Name Role Phone Odilia LIPSCOMB, Eduardo Courtney Primary Care Physician Encounter Date(s): 03/27/19 - 03/27/19 [facility] [address] [place] [address] Encounter Diagnosis Malignant neoplasm of central portion of unspecified female breast (Final) - Secondary malignant neoplasm of bone (Final) - Discharge Disposition: Home or Self Care Attending Physician: Gracia Denson Admitting Physician: Gracia Denson Referring Physician: FLAKO JESUS, DoctorQ Functional Status [...] 0 Refill(s), prn Start Date: 12/25/15 Status: OrderedAromasin 25 mg oral tablet 25 mg, = 1 tab, Oral, Daily, # 30 tab, 0 Refill(s), Pharmacy: [facility] #[id number], 1 tab Oral Daily Start Date: 03/28/19 Status: Orderedergocalciferol 50,000 intl units (1.25 mg) oral capsule 50,000 IntUnit, = 1 cap, Oral, q7day, # 4 cap, 0 Refill(s), Pharmacy: [facility] #[id number], 1cap Oral q7day,x30 day(s) Start Date: 03/28/19 Stop Date: 04/27/19 Status: OrderedLomotil 2.5 mg-0.025 mg oral tablet 2 tab, Oral, QID, X 30 day(s), # 120 tab, 0 Refill(s), for loose stools, Pharmacy: [facility] #[id number], 2 tab Oral QID,x30 day(s),PRN:for loose stools Start Date: 03/28/19 Stop Date: 04/27/19 Status: Orderedmeloxicam 15 mg oral tablet 15 mg, = 1 tab, Oral, Daily, 0 Refill(s) Start Date: 03/07/19 Status: OrderedVerzenio 100 mg oral tablet 100 mg, = 1 tab, Oral, BID, X 30 day(s), # 60 tab, 6 Refill(s), Pharmacy: [facility], 1 tab Oral BID,x30 day(s) Start Date: 03/28/19 Stop Date: 10/24/19 Status: OrderedXanax 1 mg oral tablet 1 mg, Oral, 0 Refill(s), Other Start Date: 03/06/19 Status: Ordered Results No data available for this section Immunizations No data available for this section Procedures Procedure Date Related Diagnosis Body Site Status left, breast cancer Completed port placement1 Completed 46098 Social History Social History Type Response Smoking Status Never smoker; Concerns about tobacco use in household: No entered on: 11/22/18 Assessment and Plan No data available for this section Hospital Discharge Instructions No data available for this section
--- OUTSIDE RECORDS SUMMARY | 2019-04-07 16:57 | XMS REPORT ---
:1965 Author Organization [facility] Address [address] [place] [address] Care Team Providers Name Role Phone Dung Walker Unavailable Unavailable PROBLEMS Type Condition ICD9-CM Code YLF30-XH Code Onset Condition SNOMED Code Dates Status Problem Mild intermittent J45.20 Active 647155206 asthma without complication Problem Menopausal N95.1 Active 05153776 symptoms Problem Hyperplastic K63.5 Active 593832526 colonic polyp, unspecified part of colon Problem Hypothyroidism, E03.9 Active 54313840 unspecified type ALLERGIES No Information ENCOUNTERS Encounter Location Date Diagnosis [place] [address], [place] [address] Mar, [place] [address] [place] [address] Mar, Menopausal symptoms N95.1 [place] [address] and Dysuria R30.[address] Feb, [place] [address] Feb, [place] [address] [facility] [address] Feb, Menopausal symptoms N95.1 [place] [address] ; Screening for breast cancer Z12.31 and Influenza vaccine refused Z28.21 [facility] [address] Feb, [place] [address] [place] [address] Apr, [place] [address] [place] [address], [place] [address] [place] [address] 12 Mar, 2017 [place] [address] [facility] [address] 08 Mar, 2017 Screening [place] [address] cancer Z12.4 ; Hot flashes R23.2 ; Mild intermittent asthma without complication J45.20 ; Screening for colon cancer Z12.11 ; Screening for breast cancer Z12.31 and Hypothyroidism, unspecified type E03.9 [place] [facility] [address] Jan, [place] [address] [facility] [address] Dec, [place] [address] [facility] [address] 16 Mar, 2016 [place] [address] [facility] [address] Mar, [place] [address] [facility] [address] Mar, [place] [address] [facility] [address] Feb, [place] [address] [facility] [address] Feb, [place] [address] [place] [address] Nov, [place] [address] [facility] [address] Nov, [place] [address] [facility] [address] August, [place] [address] [place] [address] August, [place] [address] IMMUNIZATIONS No Known Immunizations SOCIAL HISTORY Never Assessed REASON FOR REFERRAL FUNCTIONAL STATUS PLAN OF CARE VITAL SIGNS MEDICATIONS Unknown Medications PROCEDURES No Known procedures RESULTS No Results REASON FOR VISIT Update [employer] Insurance Providers [facility] Member Patient Patient Patient Patient Patient Subscriber Subscriber Subscriber Group Insurance Plan Plan Plan Plan ID Relationship Address Phone Name Date of ID Name Date of No Type Insurance Insurance Insurance Coverage to Subscriber Address Phone Name Dates Medicaid [address] [phone] Medicaid self Shakira [id number] Wrap [facility] 56 Wrap [facility] [address] Blue [phone] Blue self Shakira [id number] Choice Opt 89 Choice Opt [place] 1 Medical [place] Medical [address] Case [phone] Case self Shakira [id number] Management [place] 02 [facility] [address] [facility] [phone] Excellus self Shakira [id number] Essential [id number] 89 Essential [place] 9 Plan 1 2 [place] Plan 1 2 Medical [id number] Medical Blue [phone] Blue self Shakira [id number] Choice Opt 9255 Attn 83 Choice Opt [place] -WEA GG457 [place] Claims [id number] [place] [facility]plex [facility] Hplex Quentin [facility] [address] MEDICAL (GENERAL) HISTORY Type Description Date Medical History hypothyroidism Medical History Asthma Surgical History Hernia Right side x2 2004 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
--- OUTSIDE RECORDS SUMMARY | 2019-04-07 16:57 | XMS REPORT | Referral Summary ---
:1965 Author Organization [facility] Address [address] [place] [address] Care Team Providers Name Role Phone Odilia LIPSCOMB, Eduardo Courtney Primary Care Physician Encounter Date(s): 03/28/19 - 03/28/19 [facility] [address] [place] [address] [phone] Encounter Diagnosis Malignant neoplasm of unspecified site of unspecified female breast (Final) - Discharge Disposition: Home or Self Care Attending Physician: Luciano Simental MD Admitting Physician: Luciano Simental MD Functional Status No data available for this [...] Daily, # 30 tab, 0 Refill(s), Pharmacy: [facility] #[id number], 1 tab Oral Daily Start Date: 03/28/19 Status: Orderedergocalciferol 50,000 intl units (1.25 mg) oral capsule 50,000 IntUnit, = 1 cap, Oral, q7day, # 4 cap, 0 Refill(s), Pharmacy: [facility] #[id number], 1cap Oral q7day,x30 day(s) Start Date: 03/28/19 Stop Date: 04/27/19 Status: OrderedLomotil 2.5 mg-0.025 mg oral tablet 2 tab, Oral, QID, X 30 day(s), # 120 tab, 0 Refill(s), for loose stools, Pharmacy: [facility] #[id number], 2 tab Oral QID,x30 day(s),PRN:for loose stools Start Date: 03/28/19 Stop Date: 04/27/19 Status: Orderedmeloxicam 15 mg oral tablet 15 mg, = 1 tab, Oral, Daily, 0 Refill(s) Start Date: 03/07/19 Status: Orderedpotassium chloride 20 mEq oral tablet, extended release 20 mEq, = 1 tab, Oral, TID, X 3 day(s), # 9 tab, 0 Refill(s), Pharmacy: [facility] #[id number],1 tab Oral TID,x3 day(s) Start Date: 04/03/19 Stop Date: 04/06/19 Status: OrderedVerzenio 100 mg oral tablet 100 mg, = 1 tab, Oral, BID, X 30 day(s), # 60 tab, 6 Refill(s), [facility], 1 tab Oral BID,x30 day(s) Start Date: 03/28/19 Stop Date: 10/24/19 Status: OrderedXanax 1 mg oral tablet 1 mg, Oral, 0 Refill(s), Other Start Date: 03/06/19 Status: Ordered Results No data available for this section Immunizations No data available for this section Procedures Procedure Date Related Diagnosis Body Site Status left, breast cancer Completed port placement1 Completed 45302 Social History Social History Type Response Smoking Status Never smoker; Concerns about tobacco use in household: No entered on: 11/22/18 Assessment and Plan No data available for this section Hospital Discharge Instructions No data available for this section
--- OUTSIDE RECORDS SUMMARY | 2019-04-07 16:57 | XMS REPORT ---
:1965 Author Organization [facility] Address [address] [place] [address] Care Team Providers Name Role Phone Dung Walker Unavailable Unavailable PROBLEMS Type Condition ICD9-CM Code [id number] Code Onset Condition SNOMED Code Dates Status Problem Mild intermittent J45.20 Active 255572964 asthma without complication Problem Menopausal N95.1 Active 88170731 symptoms Problem Hyperplastic K63.5 Active 232035680 colonic polyp, unspecified part of colon Problem Hypothyroidism, E03.9 Active 45814052 unspecified type ALLERGIES No Information ENCOUNTERS Encounter Location Date Diagnosis [place] [address], [place] [address], [place] [address] [place] [address], Menopausal symptoms N95.1 [place] [address] and Dysuria R30.[address], [place] [address], [place] [address] [facility] [address] Feb, Menopausal symptoms N95.1 [place] [address] ; Screening for breast cancer Z12.31 and Influenza vaccine refused Z28.21 [facility] [address] Feb, [place] [address] [place] [address], [place] [address] [place] [address], [place] [address] [place] [address] Mar, 2017 [place] [address] [facility] [address] 08 Mar, 2017 [place] [address] cancer Z12.4 ; Hot flashes R23.2 ; Mild intermittent asthma without complication J45.20 ; Screening for colon cancer Z12.11 ; Screening for breast cancer Z12.31 and Hypothyroidism, unspecified type E03.9 [place] [facility] [address] Jan, [place] [address] [facility] [address] Dec, [place] [address] [facility] [address], [place] [address] [facility] [address], [place] [address] [place] [address], [place] [address] [facility] [address] Feb, [place] [address] [facility] [address], [place] [address] [facility] [address] Nov, [place] [address] [place] [address] Nov, [place] [address] [facility] [address] August, [place] [address] [place] [address], [place] [address] IMMUNIZATIONS No Known Immunizations SOCIAL HISTORY Never Assessed REASON FOR REFERRAL FUNCTIONAL STATUS PLAN OF CARE Activity Details Follow Up as scheduled Reason: Pending Test -Urine-Dip VITAL SIGNS Temperature 97.4 degrees Fahrenheit 2019-03-28 Heart Rate 20 2019-03-28 Weight 132.6 2019-03-28 Height 62.9 in 2019-03-28 BMI 23.56 kg/m2 2019-03-28 Oximetry 96 % 2019-03-28 Blood pressure systolic 106 mm Hg 2019-03-28 Blood pressure diastolic 70 mm Hg 2019-03-28 MEDICATIONS Medication Instructions Dosage Frequency Start End Duration Status Date Date Levothyroxine Orally Once a 1 tablet 24h Active Sodium 75 MCG day on an empty stomach in the morning Mometasone Nasally Once a 2 sprays 24h Active Furoate 50 day in each MCG/ACT nostril Nitrofurantoin Orally every 12 1 capsule 12h Dec, 8 Dec, 5 day(s) Active Monohyd Macro 100 hrs with food 2018 2019 mg Venlafaxine HCl Orally Once a 1 tablet 24h Feb, day(s) Active 37.5 MG day with food 2018 Ventolin HFA 108 Inhalation 2 puffs as 6h Not-Taki (90 Base) MCG/ACT every 6 hrs needed ng PROCEDURES Procedure Date Ordered Result Body Site SPECIMEN HANDLING Mar 28, 2019 Urinalysis nonauto wo scope Mar 28, 2019 BODY MASS INDEX DOCD Mar 28, 2019 SMOKING + 2ND HAND ASSESSED Mar 28, 2019 Oxygen saturation results documented and reviewed Mar 28, 2019 BLOOD PRESSURE, MEASURED Mar 28, 2019 RESULTS Name Result Date Reference Range -Urine/Lab Specimen Collection 2019-03-28 URINALYSIS, COMPLETE W/REFLEX TO 2019-03-28 CULTURE COLOR YELLOW YELLOW APPEARANCE CLEAR CLEAR SPECIFIC GRAVITY 1.018 1.001-1.035 PH 6.0 5.0-8.0 GLUCOSE NEGATIVE NEGATIVE BILIRUBIN NEGATIVE NEGATIVE KETONES NEGATIVE NEGATIVE OCCULT BLOOD NEGATIVE NEGATIVE PROTEIN NEGATIVE NEGATIVE NITRITE NEGATIVE NEGATIVE LEUKOCYTE ESTERASE NEGATIVE NEGATIVE WBC NONE SEEN < OR = 5 RBC NONE SEEN < OR = 2 SQUAMOUS EPITHELIAL CELLS 0-5 < OR = 5 BACTERIA NONE SEEN NONE SEEN HYALINE CAST NONE SEEN NONE SEEN REFLEXIVE URINE CULTURE NO CULTURE INDICATED REASON FOR VISIT Pap, PVP:COLON,PHQ-2,TOBACCO SCR,BMI&FU,FLU,TETANUS,ZOSTER.CM Offer imms. MPT, PATIENT IS NOT DUE FOR A PAP.CM correct but patient has some concerns with her reproductive tract and is coming for pelvic exam. Please set up tray. MPT, Patient is not due for colon cancer screening she has an up to date colonoscopy report in chart. Please see why this is not tracking correctly. [facility], [facility] Insurance Providers [facility] Health Member Patient Patient Patient Patient Patient Subscriber Subscriber Subscriber Group Insurance Plan Plan Plan Plan ID Relationship Address Phone Name Date of ID Name Date of No Type Insurance Insurance Insurance Coverage to Subscriber Address Phone Name Dates Case [phone] Case self [place]akira [id number] Management [place] [address] [facility] [address] [facility] Excell[employer] [phone] Excell[place] self Shakira [id number] Essential [id number] Essential [place] 9 Plan 1 2 [place] Plan 1 2 Medical [id number] Medical Medicaid [id number] [phone] Medicaid self Shakira [id number] Wrap [facility] 56 Wrap [place] [address] Blue [phone] Blue self Shakira [id number] [place] [id number] Choice Opt [place] 1 Medical [facility] [address] Blue [phone] Blue self Shakira [id number] Choice Opt [address] 83 Choice Opt [place] -WEA GG457 [place] [id number] [place] [facility] [address] MEDICAL (GENERAL) HISTORY Type Description Date Medical History hypothyroidism Medical History Asthma Surgical History Hernia Right side x2 2004 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
--- OUTSIDE RECORDS SUMMARY | 2019-04-07 16:57 | XMS REPORT ---
:1965 Author Organization [facility] Address [address] [place] [address] Care Team Providers Name Role Phone Dung Walker Unavailable Unavailable PROBLEMS Type Condition ICD9-CM Code [id number] Code Onset Condition SNOMED Code Dates Status Problem Mild intermittent J45.20 Active 865560638 asthma without complication Problem Menopausal N95.1 Active 77455981 symptoms Problem Hyperplastic K63.5 Active 245476089 colonic polyp, unspecified part of colon Problem Hypothyroidism, E03.9 Active 67383811 unspecified type ALLERGIES No Information ENCOUNTERS Encounter Location Date Diagnosis [place] [address], [place] [address], [place] [address] [place] [address], Menopausal symptoms N95.1 [place] [address] and Dysuria R30.[address], [place] [address], [place] [address] [facility] [address] Feb, Menopausal symptoms N95.1 [place] [address] ; Screening for breast cancer Z12.31 and Influenza vaccine refused Z28.21 [facility] [address] Feb, [place] [address] [place] [address], [place] [address] [place] [address], [place] [address] [place] [address] Mar, 2017 [place] [address] [facility] [address] 08 Mar, 2017 [place] [address] cancer Z12.4 ; Hot flashes R23.2 ; Mild intermittent asthma without complication J45.20 ; Screening for colon cancer Z12.11 ; Screening for breast cancer Z12.31 and Hypothyroidism, unspecified type E03.9 [place] [facility] [address] Jan, [place] [address] [facility] [address] Dec, [place] [address] [facility] [address], [place] [address] [facility] [address], [place] [address] [facility] [address], [place] [address] [facility] [address] Feb, [place] [address] [facility] [address] Feb, [place] [address] [facility] [address] Nov, [place] [address] [facility] [address] Nov, [place] [address] [facility] [address] August, [place] [address] [place] [address], [place] [address] IMMUNIZATIONS No Known Immunizations SOCIAL HISTORY Never Assessed REASON FOR REFERRAL FUNCTIONAL STATUS PLAN OF CARE VITAL SIGNS MEDICATIONS Unknown Medications PROCEDURES No Known procedures RESULTS No Results REASON FOR VISIT lab results Insurance Providers [facility] Health Member Patient Patient Patient Patient Patient Subscriber Subscriber Subscriber Group Insurance Plan Plan Plan Plan ID Relationship Address Phone Name Date of ID Name Date of No Type Insurance Insurance Insurance Coverage to Subscriber Address Phone Name Dates Medicaid [id number] [phone] Medicaid self Shakira [id number] Wrap [facility] 56 Wrap [facility] [address] Blue [phone] Blue self Shakira [id number] Choice Opt 89 Choice Opt [place] 1 Medical [place] Medical [id number] Case [phone] Case self Shakira [id number] Management [place] 02 Management [facility] [address] [facility] Excellus [phone] Excell[place] self Shakira [id number] Essential [id number] 89 Essential [place] 9 Plan 1 2 [place] Plan 1 2 Medical [id number] Medical Blue [phone] Blue self Shakira [id number] Choice Opt 9255 Attn 83 Choice Opt [place] -WEA GG457 [place] [id number] [place] [facility] [address] MEDICAL (GENERAL) HISTORY Type Description Date Medical History hypothyroidism Medical History Asthma Surgical History Hernia Right side x2 2004 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
[2019-04-07] MEDS ORDERED: Sulfacetamide 10 % OPTH.SOL BOTH EYES ONE (19:56)
--- NOTE | 2019-04-07 19:57 | ED ---
Throat Pain/Nasal Congestion - HPI Summary HPI Summary: Patient is a 53 y/o F presenting to [facility] with complaints of watery discharge from her right eye. Sx onset this morning and have progressively worsened. Patient characterizes the pain as a burning sensation. She denies inability to open her right eye but states that her eye feels "gummy" and notes that she is starting to feel some crust around her right eye. She denies any foreign body sensation. Left eye is starting to feel "sticky" as well. Vision has been somewhat blurred. On triage, pain is rated 2/10. Patient wears glasses and denies Hx of eye issues. PMHx of hypothyroidism noted. Home medications and allergies are reviewed. - History of Current Complaint Chief Complaint: EDEyeProblem Time Seen by Provider: 04/07/19 19:49 Hx Obtained From: Patient Onset/Duration: Lasting Hours, Still Present, Worse Since Severity: Mild Associated Signs And Symptoms: Negative: FB Sensation Cough: None - Allergies/Home Medications Allergies/Adverse Reactions: Allergies Allergy/AdvReac Type Severity Reaction Status Date / Time morphine Allergy Itching Verified 04/07/19 16:46 Home Medications: Home Medications Levothyroxine Sodium 1 tab PO DAILY 04/07/19 [History Confirmed 04/07/19] Mometasone Furoate 1 spray BOTH NARES DAILY 04/07/19 [History Confirmed 04/07/19 ] Venlafaxine HCl 1 tab PO DAILY 04/07/19 [History Confirmed 04/07/19] PMH/Surg Hx/FS Hx/Imm Hx Endocrine/Hematology History: Reports: Hx Thyroid Disease - take levothyroxine Denies: Hx Anticoagulant Therapy, Hx Blood Disorders Cardiovascular History: Denies: Other Cardiovascular Problems/Disorders Respiratory History: Reports: Hx Asthma - albuterol inhaler PRN - Cancer History Hx Chemotherapy: No Hx Radiation Therapy: No - Surgical History Surgery Procedure, Year, and Place: none - Immunization History Date of Influenza Vaccine: 2013 Infectious Disease History: No Infectious Disease History: Denies: Traveled Outside the [place] in Last 30 Days - Family History Known Family History: Negative: Blood Disorder - Social History Alcohol Use: Weekly Hx Substance Use: No Substance Use Type: Reports: None Hx Tobacco Use: Yes Smoking Status (MU): Current Every Day Smoker Review of Systems Negative: Fever - on vitals temp is 98.3 F Eyes: Other - positive - eye pain, eye feels "gummy", crusting,; negative - FB sensation, inability to open eye Positive: Blurred Vision, Drainage All Other Systems Reviewed And Are Negative: Yes Physical Exam - Summary Physical Exam Summary: Appearance: Well-appearing, Well-nourished, lying in bed comfortable Skin: Warm, dry, no obvious rash Eyes: There is obvious conjunctival injection of the right eye without similar injection to the left eye. There is no chemosis, no discharge noted. EOMI and gaze is conjugate. Visual acuity is grossly normal. ENT: mucous membranes moist Neck: deferred Respiratory: No signs of respiratory distress Cardiovascular: Appears well perfused, pulses are nml Abdomen: deferred Musculoskeletal: Moving all 4 extremities without obvious discomfort Neurological: Awake and alert, mentation is normal, speech is fluent and appropriate Psychiatric: affect is normal, does not appear anxious or depressed Triage Information Reviewed: Yes Vital Signs On Initial Exam: Initial Vitals Temp Pulse Resp BP Pulse Ox 98.3 F 82 16 129/75 95 04/07/19 16:43 04/07/19 16:43 04/07/19 16:43 04/07/19 16:43 04/07/19 16:43 Vital Signs Reviewed: Yes Procedures - Sedation Patient Received Moderate/Deep Sedation with Procedure: No Diagnostics - Vital Signs Vital Signs Temp Pulse Resp BP Pulse Ox 04/07/19 16:43 98.3 F 82 16 129/75 95 - Laboratory Lab Statement: Any lab studies that have been ordered have been reviewed, and results considered in the medical decision making process. EENT Course/Dx - Course Course Of Treatment: Patient is a 53 y/o F presenting to [facility] with complaints of watery discharge from her right eye. Sx onset this morning and have progressively worsened. Patient characterizes the pain as a burning sensation. She denies inability to open her right eye but states that her eye feels "gummy " and notes that she is starting to feel some crust around her right eye. She denies any foreign body sensation. Left eye is starting to feel "sticky" as well. Vision has been somewhat blurred. On eye exam, there is obvious conjunctival injection of the right eye without similar injection to the left eye. There is no chemosis, no discharge noted. EOMI and gaze is conjugate. Visual acuity is grossly normal. During ED course, sulamyd 10% opth drops and blephamide opth.eros drops were administered. Patient was given antibiotic eye drops, patient will contact crewman arm[employer] personnel [phone] for follow-up in next three days. She was discharged to home. - Diagnoses Provider Diagnoses: Acute conjunctivitis Discharge ED - Sign-Out/Discharge Documenting (check all that apply): Patient Departure - discharge - Discharge Plan Condition: Stable Disposition: HOME Patient Education Materials: Conjunctivitis (ED) Referrals: Thai Trejo MD [Primary Care Provider] - Additional Instructions: If your eyes don't start to improve over the weekend with the antibiotic eye drops, contact your eye doctor on Wednesday for followup evaluation. They have much more sophisticated equipment to perform a proper exam of the eye, as well as better expertise than we have here of course. - Billing Disposition and Condition Condition: STABLE Disposition: Home - Attestation Statements Document Initiated by Tejibe: Yes Documenting Scribe: HENRY FLOR Provider For Whom Tejibe is Documenting (Include Credential): JARETT MAYORGA MD Scribe Attestation: IHENRY, scribed for JARETT MAYORGA MD on 04/08/19 at 0419. Scribe Documentation Reviewed: Yes Provider Attestation: The documentation as recorded by the HENRY gallardo accurately reflects the service I personally performed and the decisions made by me, JARETT MAYORGA MD Status of Scribe Document: Viewed
[2019-04-07] MEDS ORDERED: Sulfacet/PrednisoLONE OPTH.SO* 1 DROP BTL BOTH EYES SCH (20:00)
[2019-04-07 20:51] VITALS: BP 0/0
== END 2019-04-07 20:15 | disposition home or self-care (01) ==
LOC: ED 16:36
DX: H10.31 Unspecified acute conjunctivitis, right eye (principal); E07.9 Disorder of thyroid, unspecified; J45.909 Unspecified asthma, uncomplicated; F17.210 Nicotine dependence, cigarettes, uncomplicated
CPT/HCPCS: 99282; A9270-GY